=== PATIENT | male | born 1970 ===

== ENCOUNTER 2021-11-04 05:58 | Day surgery (SDC) | payer OTHER ==
[~2021-11-04] VITALS: Ht 157.5 cm; Wt 79.4 kg
[~2021-11-04 05:58] MED LIST: COZAAR100 MG PO; NORVASC5 MG PO; OMEPRAZOLE40 MG PO; TRICOR145 MG PO
== END 2021-11-04 14:00 | disposition home or self-care (01) ==
LOC: CIR.AMB 05:58
PROVIDERS: ATTEND Urology
DX: N47.1 Phimosis (principal); Z20.822 Contact with and (suspected) exposure to COVID-19; I10 Essential (primary) hypertension; Z86.16 Personal history of COVID-19; Z87.891 Personal history of nicotine dependence; F32.A Depression, unspecified; K21.9 Gastro-esophageal reflux disease without esophagitis; N47.6 Balanoposthitis